=== PATIENT | female | born 1995 | race Caucasian/White ===

== ENCOUNTER 2017-08-06 21:12 | Emergency (ER) | payer OTHER ==
--- NOTE | 2017-08-06 21:49 | XR ---
EXAMINATION TYPE: XR chest 2V DATE OF EXAM: 08/06/2017 COMPARISON: 08/17/2015 HISTORY: Cough TECHNIQUE: Frontal and lateral views of the chest are obtained. FINDINGS: There is a patchy pneumonic 8 cm infiltrate in the right upper lobe. The other lung reeder are clear. There is no heart failure. Heart and mediastinum are normal. There is no sign of pleural effusion. Bony thorax is intact. IMPRESSION: There is new right upper lobe pneumonia compared to old exam.
[2017-08-06] MEDS ORDERED: cefTRIAXone IN SWFI 1,000 MG/10 ML SYRINGE IVP STA (21:52)
[2017-08-06] MEDS ORDERED: AZITHROMYCIN 500 MG TAB PO STA (21:52)
[2017-08-06 22:19] VITALS: BP 98/64; PULSE 88; RESP 18; TEMP 99
[2017-08-06 22:20] LABS: Basophils % (A) 0 %; Eosinophils # (A) 0.2 k/uL (0-0.7); Eosinophils % (A) 3 %; HCT 39.3 % (34.0-46.0); Lymphocytes # (A) 0.7 k/uL (1.0-4.8); Lymphocytes % (A) 8 %; MCH 29.5 pg (25.0-35.0); MCV 89.4 fL (80.0-100.0); Mean Platelet Volume 7.8; Monocytes # (A) 0.5 k/uL (0-1.0); Monocytes % (A) 5 %; Neutrophils # (A) 7.9 k/uL (1.3-7.7); Neutrophils % (A) 83 %; Platelet Count 279 k/uL (150-450); RDW 13.7 % (11.5-15.5); WBC 9.5 k/uL (3.8-10.6)
[2017-08-06 22:26] LABS: Anion Gap 8 mmol/L; Blood Urea Nitrogen 12 mg/dL (7-17); Calcium 9.1 mg/dL (8.4-10.2); Carbon Dioxide 28 mmol/L (22-30); Chloride 104 mmol/L (98-107); Glucose 81 mg/dL (74-99); Potassium 3.9 mmol/L (3.5-5.1); Sodium 140 mmol/L (137-145)
--- NOTE | 2017-08-06 22:34 | ED ---
SOB HPI - General Chief Complaint: Shortness of Breath Stated Complaint: SOB Time Seen by Provider: 08/06/17 21:20 Source: patient Mode of arrival: ambulatory Limitations: no limitations - History of Present Illness Initial Comments: This patient is a 21-year-old woman who presents with the number of complaints that include cough, shortness of breath, and right upper back pain when she coughs. She states that the symptoms have been going on for a couple of days and have limited her activity. She states she has mostly been relaxing in bed trying to recover. She is occasionally bringing up some sputum, but the cough is largely nonproductive. When questioned about fever she has felt hot but not documented temperature. MD Complaint: shortness of breath, cough Onset/Timin -: days(s) Radiation: back Severity: moderate Quality: aching Consistency: constant Improves With: nothing Worsens With: coughing Associated Symptoms: fever, cough Treatments Prior to Arrival: none - Related Data Home Medications Medication Instructions Recorded Confirmed Acetaminophen Tab [Tylenol Tab] 650 mg PO Q6H PRN 08/06/17 08/06/17 Naproxen Sodium [Aleve] 440 mg PO DAILY PRN 08/06/17 08/06/17 Previous Rx's Medication Instructions Recorded Azithromycin [Zithromax Z-pack] 250 mg PO DIRECTED #6 tab 08/06/17 Allergies Allergy/AdvReac Type Severity Reaction Status Date / Time No Known Allergies Allergy Verified 08/06/17 21:27 Review of Systems ROS Statement: Those systems with pertinent positive or pertinent negative responses have been documented in the HPI. ROS Other: All systems not noted in ROS Statement are negative. Constitutional: Reports: fever Respiratory: Reports: as per HPI, cough, dyspnea. Denies: hemoptysis Cardiovascular: Denies: chest pain, palpitations, dyspnea on exertion, orthopnea , edema, syncope Gastrointestinal: Denies: abdominal pain, nausea, vomiting Genitourinary: Denies: dysuria, hematuria Musculoskeletal: Reports: as per HPI, back pain Skin: Denies: rash Neurological: Denies: headache, weakness, numbness Past Medical History Past Medical History: No Reported History History of Any Multi-Drug Resistant Organisms: None Reported, MRSA Date of last positivie culture/infection: 2010 MDRO Source:: stomach Past Surgical History: No Surgical Hx Reported Past Psychological History: ADD/ADHD Smoking Status: Never smoker Past Alcohol Use History: Daily, Heavy Past Drug Use History: None Reported General Exam Limitations: no limitations General appearance: alert, in no apparent distress Head exam: Present: atraumatic, normocephalic ENT exam: Present: normal oropharynx Neck exam: Present: normal inspection Respiratory exam: Present: normal lung sounds bilaterally, rales (Right upper lung field), other (Bronchial breath sounds right upper lung field). Absent: respiratory distress, wheezes, rhonchi, stridor, accessory muscle use, decreased breath sounds, prolonged expiratory Cardiovascular Exam: Present: normal rhythm, tachycardia (Rate 104 at my exam), normal heart sounds. Absent: systolic murmur, diastolic murmur, rubs, gallop GI/Abdominal exam: Present: soft. Absent: distended, tenderness, guarding, rebound Extremities exam: Present: normal inspection, normal capillary refill. Absent: pedal edema, calf tenderness Back exam: Present: normal inspection. Absent: CVA tenderness (R), CVA tenderness (L) Neurological exam: Present: alert Skin exam: Present: warm, dry, intact, normal color. Absent: rash Course Vital Signs 08/06/17 08/06/17 21:12 22:18 Temperature 98.1 F 99.0 F Pulse Rate 106 H 88 Respiratory 20 18 Rate Blood Pressure 126/74 98/64 O2 Sat by Pulse 99 96 Oximetry Medical Decision Making - Medical Decision Making Patient is 21-year-old woman who presents with cough, a little bit of dyspnea, subjective fever, and right upper back pain that is been going on for a couple of days. Clinically the exam is suggestive of pneumonia and the x-ray confirms right upper lobe pneumonia. Patient started antibiotics here and will continue outpatient course of antibiotics. Discussed return parameters. All questions answered. - Lab Data Result diagrams: 08/06/17 22:00 08/06/17 22:00 Lab Results 08/06/17 08/06/17 Range/Units 22:00 22:00 WBC 9.5 (3.8-10.6) k/uL RBC 4.40 (3.80-5.40) m/uL Hgb 13.0 (11.4-16.0) gm/dL Hct 39.3 (34.0-46.0) % MCV 89.4 (80.0-100.0) fL MCH 29.5 (25.0-35.0) pg MCHC 33.0 (31.0-37.0) g/dL RDW 13.7 (11.5-15.5) % Plt Count 279 (150-450) k/uL Neutrophils % 83 % Lymphocytes % 8 % Monocytes % 5 % Eosinophils % 3 % Basophils % 0 % Neutrophils # 7.9 H (1.3-7.7) k/uL Lymphocytes # 0.7 L (1.0-4.8) k/uL Monocytes # 0.5 (0-1.0) k/uL Eosinophils # 0.2 (0-0.7) k/uL Basophils # 0.0 (0-0.2) k/uL Sodium 140 (137-145) mmol/L Potassium 3.9 (3.5-5.1) mmol/L Chloride 104 (98-107) mmol/L Carbon Dioxide 28 (22-30) mmol/L Anion Gap 8 mmol/L BUN 12 (7-17) mg/dL Creatinine 0.70 (0.52-1.04) mg/dL Est GFR (MDRD) Af Amer >60 (>60 ml/min/1.73 sqM) Est GFR (MDRD) Non-Af >60 (>60 ml/min/1.73 sqM) Glucose 81 (74-99) mg/dL Calcium 9.1 (8.4-10.2) mg/dL Disposition Clinical Impression: Pneumonia Disposition: HOME SELF-CARE Condition: Good Instructions: Pneumonia (ED) Prescriptions: Azithromycin [Zithromax Z-pack] 250 mg PO DIRECTED #6 tab Referrals: None,Stated [Primary Care Provider] - 1-2 days Annmarie Barkley MD [REFERRING] - 1-2 days
--- NOTE | 2017-08-09 00:24 | CDI ---
Documentation Clarification OP Dear Derrick STOCKTON MD Please do addendum to ED report for HPI , Physical exam and MDM. Thank you, Lucie Guillen Frame Cleaner If you have any question, Please contact coding coordinator at [phone] [facility]
== END 2017-08-06 23:07 | disposition home or self-care (01) ==
LOC: EC 21:12
DX: J18.9 Pneumonia, unspecified organism (principal); M54.6 Pain in thoracic spine; Z86.14 Personal history of Methicillin resistant Staphylococcus aureus infection
CPT/HCPCS: 36415; 80048; 85025; 71046; 99285; 96374; J0696